=== PATIENT | male | born 1960 | race Hispanic/Latino ===

== ENCOUNTER 2022-11-19 13:20 | Emergency (ER) | payer OTHER ==
[~2022-11-19] VITALS: Ht 172.7 cm; Wt 70.3 kg
[2022-11-19 14:02] VITALS: BP 122/69
== END 2022-11-19 16:17 | disposition left against medical advice (07) ==
LOC: EDH 13:20
DX: M19.012 Primary osteoarthritis, left shoulder (principal)
CPT/HCPCS: 73030

== ENCOUNTER 2025-07-16 12:33 | Emergency (ER) | payer MEDICARE ==
[~2025-07-16] VITALS: Ht 172.7 cm; Wt 72.6 kg
[2025-07-16 12:46] LABS: IMMATURE GRANULOCYTE ABSOLUTE 0.04 K/uL (0-1); NUCLEATED RED BLOOD CELLS 0.0 % (0.0-0.19); PLATELET COUNT (AUTO) 306 K/uL (130-400); RED BLOOD CELL COUNT(AUTO) 4.26 MIL/uL (4.50-6.20); RED CELL DISTRIBUTION WIDTH 14.2 % (11.0-15.5); WHITE BLOOD COUNT (AUTO) 9.0 K/uL (4.8-10.8)
[2025-07-16 12:53] LABS: CREATININE 1.0 mg/dL (0.5-1.3); GLOMERULAR FILTR. RATE CALC 84.0 mL/min (>90); GLUCOSE,RANDOM 96.0 mg/dL (70-105); SODIUM SERUM 133.0 mmol/L (136-145); UREA NITROGEN, BLOOD 14.0 mg/dL (7-18)
[2025-07-16 13:05] LABS: APPEARANCE,URINE CLOUDY (CLEAR); GLUCOSE, URINE (UA) NEGATIVE (NEGATIVE); LEUKOCYTE ESTERASE ,URINE 25 Leu/uL (NEGATIVE); NITRATE,URINE NEGATIVE (NEGATIVE); OCCULT BLOOD,URINE SMALL (NEGATIVE)
[2025-07-16 13:16] VITALS: BP 137/81; PULSE 79; RESP 17; TEMP 98.6; O2SAT 97
--- NOTE | 2025-07-16 13:43 | ERN ---
General Chief Complaint: Painful Urination Stated Complaint: DYSURIA. RIVERA CATHETER PROBLEM Time Seen by MD: 12:35 Source: patient History of Present Illness Initial Comments Patient is a 64-year-old male coming in complaining of dysuria. Long with the as he states that he has had a catheter which he has had for two weeks in his not been exchanged. No fever no chills. Allergies: Coded Allergies: No Known Drug Allergies (Unverified Allergy, Unknown, 07/16/25) Past Medical History Past Medical History: UTI, Other Medical History Other: RIVERA CATHETER. URINARY RETENTION. Past Surgical History: Other Surgical History Other: VARICES Social History Social History: Negative, Lives with family ROS Dictation CONSTITUTIONAL: No chills, no fever, no weakness, no diaphoresis, no malaise. HEAD/FACE: No signs of trauma. EENT: No eye pain, no blurred vision, no tearing, no double vision, no ear pain, no ear discharge, no nose pain, no nasal congestion, no throat pain, no throat swelling, no mouth pain. RESPIRATORY: No cough, no orthopnea, no SOB, no stridor, no wheezing. CARDIOVASCULAR: No chest pain, no edema, no palpitations, no syncope. GASTROINTESTINAL/ABDOMINAL: No abdominal pain, no constipation, no diarrhea, no nausea, no vomiting. GENITOURINARY: No abnormal discharge, dysuria, no frequent urination, no hematuria. complaints of pain in the genitals. MUSCULOSKELETAL: No back pain, no gout, no joint pain, no joint swelling, no muscle pain, no muscle stiffness, no neck pain. INTEGUMENTARY: No change in color, no change in hair/nails, no dryness, no lesion, no lumps, no rash. NEUROLOGICAL/PSYCH: No anxiety, not depressed, no emotional problem, no headache, no numbness, no pre-existing deficit, no history of seizures, no tremors, no weakness. HEMATOLOGIC/LYMPHATIC: Not anemic, no history of blood clots, no apparent bleeding, no bruising, glands not swollen. All Systems Negative, Except as Noted. Physical Exam Physical Exam Dictation VITAL SIGNS: Reviewed. GENERAL APPEARANCE: Alert, oriented x3, no acute distress, obese. HEAD AND FACE: Non-traumatic. EYES: PERRL, pink conjunctivas, eyelid no trauma, anterior chamber clear. EARS: Pinnas intact and no signs of trauma or erythema. Ear canals clear and no discharge. TMs no erythema. NOSE: No discharge, no bleeding. OROPHARYNX: Mouth normal, teeth no caries, tongue pink. Pharynx clear, no erythema. Tonsils no exudates, no abscesses noted. Mucous membrane moist. NECK: Supple, non-tender, no thyromegaly, no masses, no JVD, no bruits. BREAST: Deferred. CHEST: No tenderness, no crepitus, no paradoxical movement, no retractions. LUNGS: Clear, well-ventilated, symmetric, no rales, no wheezing, no rhonchi, no stridor, good breath sounds bilaterally. HEART: Regular rate, regular rhythm, no murmur, no gallops. VASCULAR: No peripheral edema. ABDOMEN: Soft, positive bowel sounds, nondistended, no guarding, nontender, no rebound, no masses no hepatomegaly, no splenomegaly, no Blas's sign, no hernias. RECTAL: Deferred. GENITAL: Rivera catheter in place, balanitis, NEUROLOGICAL: Normal speech, gross motor function intact, gross sensory function intact. MUSCULOSKELETAL: Neck nontender, full range of motion, back nontender, full range of motion. EXTREMITIES: Nontender, full range of motion. SKIN: Color pink, dry, no turgor, no rash, no lacerations, no abrasions, no contusions. LYMPHATICS: Deferred. Results Laboratory and Microbiology Lab and Micro Result Laboratory Tests Test 07/16/25 12:40 07/16/25 12:51 White Blood Count 9.0 K/uL (4.8-10.8) Red Blood Count 4.26 MIL/uL (4.50-6.20) L Hemoglobin 12.3 g/dL (14.0-18.0) L Hematocrit 37.1 % (42-54) L Mean Corpuscular Volume 87.1 fL (79-99) Mean Corpuscular Hemoglobin 28.9 pg (27.0-33.0) Mean Corpuscular Hemoglobin Concent 33.2 g/dL (32.0-36.0) Red Cell Distribution Width 14.2 % (11.0-15.5) Platelet Count 306 K/uL (130-400) Mean Platelet Volume 8.9 fL (7.5-10.5) Immature Granulocyte % (Auto) 0.4 % (0-1) Neutrophils (%) (Auto) 72.1 % (40.0-77.0) Lymphocytes (%) (Auto) 14.0 % (21.0-51.0) L Monocytes (%) (Auto) 9.8 % (3.0-13.0) Eosinophils (%) (Auto) 3.1 % (0.0-8.0) Basophils (%) (Auto) 0.6 % (0.0-5.0) Neutrophils # (Auto) 6.5 K/uL (1.8-7.7) Lymphocytes # (Auto) 1.3 K/uL (1.0-4.8) Monocytes # (Auto) 0.9 K/uL (0.1-1.0) Eosinophils # (Auto) 0.28 K/uL (0.00-0.70) Basophils # (Auto) 0.05 K/uL (0.00-0.20) Absolute Immature Granulocyte (auto 0.04 K/uL (0-1) Nucleated Red Blood Cells 0.0 % (0.0-0.19) Sodium Level 133 mmol/L (136-145) L Potassium Level 3.9 mmol/L (3.5-5.1) Chloride Level 97 mmol/L (101-111) L Carbon Dioxide Level 26 mmol/L (21-32) Blood Urea Nitrogen 14 mg/dL (7-18) Creatinine 1.0 mg/dL (0.5-1.3) Glomerular Filtration Rate Calc 84 mL/min (>90) Random Glucose 96 mg/dL (70-105) Total Calcium 8.9 mg/dL (8.5-10.1) Urine Color LIGHT-YELLOW (YELLOW) Urine Appearance CLOUDY (CLEAR) H Urine pH 6.5 (5.0-8.0) Urine Specific Buck[place] 1.013 (1.001-1.031) Urine Protein NEGATIVE mg/dL (NEGATIVE) Urine Glucose (UA) NEGATIVE mg/dL (NEGATIVE) Urine Ketones NEGATIVE mg/dL (NEGATIVE) Urine Occult Blood SMALL (NEGATIVE) H Urine Nitrate NEGATIVE (NEGATIVE) Urine Bilirubin NEGATIVE mg/dL (NEGATIVE) Urine Urobilinogen 0.2 mg/dL (0.2-1.0) Urine Leukocyte Esterase 25 Debi/uL (NEGATIVE) H Urine RBC 2-5 /HPF (0-1) H Urine WBC 2-5 /HPF (0-1) H Urine Squamous Epithelial Cells 2-5 /HPF (0-2) Urine Bacteria Many /HPF (None Seen) H Labs Reviewed?: Yes MDM MDM: Differential diagnosis: Balanitis, UTI, Rivera catheter in place Rationale: Tests considered and ordered secondary to shared decision making include: Previous outside records reviewed: Old ER visits. Risk of complication and/or morbidity or mortality of patient management: None Medications-Per medication reconciliation Need for hospitalization: Patient does not meet criteria for hospitalization. Need for emergency major/minor surgery: No In his is a 64-year-old gentleman coming in to be evaluated for dysuria and penile pain. Patient has a Rivera catheter in place which he has had for two weeks. On physical exam gland penis says mildly swollen with a balanitis present. Patient will be discharged with oral antibiotics Rivera catheter was replaced. ED Course Orders Procedure Category Date Status Time Cbc With Differential LAB 07/16/25 Complete 12:35 Basic Metabolic Panel LAB 07/16/25 Complete 12:35 Urinalysis LAB 07/16/25 Complete W/Microscopic 12:35 Methylprednisolone PHA 07/16/25 Complete Succ 125mg (Solu-Medr 13:00 Culture Urine TRUDY 07/16/25 In Process 13:22 Acetaminophen 500mg PHA 07/16/25 Complete Tab (Tylenol 500mg T 14:00 Acetaminophen 500mg PHA 07/16/25 Complete Tab (Tylenol 500mg T 13:41 Current Medications Medications (Trade) Dose Ordered Sig/Jose R Route PRN Reason Start Time Stop Time Status Last Admin Dose Admin Acetaminophen (TYLenol 500MG TAB) 500 mg ONCE ONCE PO 07/16/25 14:00 07/16/25 14:01 DC 07/16/25 13:43 Acetaminophen (TYLenol 500MG TAB) 500 mg STK-MED ONCE .ROUTE 07/16/25 13:41 07/16/25 13:42 DC Methylprednisolone Sodium Succinate (Solu-medROL 125MG) 125 mg ONCE ONCE IVP 07/16/25 13:00 07/16/25 13:01 DC 07/16/25 13:10 Vital Signs Date Time Temp Pulse Resp B/P (MAP) Pulse Ox O2 Delivery O2 Flow Rate FiO2 07/16/25 13:16 98.6 79 17 137/81 97 Room Air* 0 21 07/16/25 12:34 98.8 76 18 111/93 100 Room Air 0 DX & DISP Disposition: Discharge Departure Impression: Primary Impression: Balanitis Additional Impression: UTI (urinary tract infection) Condition: Stable Scripts Dimethicone (Monistat Soothing Care) 1.2 % Gel..gram. 42 GM TP BID for 7 Days, #1 TUBE Prov: JUANITA WIN MD 07/16/25 Cephalexin Monohydrate (Keflex) 500 Mg Cap 1 CAP PO BID for 10 Days, #20 CAP 0 Refills Prov: JUANITA WIN MD 07/16/25 Additional Instructions: FOLLOW-UP WITH PRIMARY CARE PROVIDER IN 1 TO 2 DAYS. TAKE MEDICATIONS DIRECTED HERE IN THE EMERGENCY ROOM. OKAY TO CONTINUE HOME MEDICATIONS UNLESS OTHERWISE DISCUSSED DURING YOUR VISIT IN THE EMERGENCY ROOM TODAY. RETURN TO YOUR NEAREST EMERGENCY ROOM IF SYMPTOMS WORSEN OR IF THERE IS NO IMPROVEMENT. CALL 911 IF YOU NEED IMMEDIATE ASSISTANCE. TAKE TYLENOL [id number] NEEDED AND IF NO CONTRAINDICATIONS ARE PRESENT. INCREASE ORAL HYDRATION. A WOUND CULTURE OR URINE CULTURE WAS ORDERED HERE IN THE EMERGENCY ROOM DEPARTMENT PLEASE FOLLOW-UP WITH PRIMARY CARE PROVIDER AND ADVISE THEM TO GET REPORTS FROM OUR FACILITY. IF YOU HAD ANY CAITLYN WRAP/SPLINTS THAT WERE APPLIED HERE, PLEASE DO NOT REMOVE THEM UNTIL YOU SEE YOUR PRIMARY CARE OR SPECIALTY. Referrals: Referrals: SELF,REFERRAL (PCP) WILBERTO TOBAR MD, LUIS A MD Time of Disposition: 14:08 JUANITA WIN MD Jul 16, 2025 13:43
[2025-07-16] MEDS ORDERED: DIME42GE TP (14:09)
[2025-07-16] MEDS ORDERED: CEPH500B PO (14:09)
--- NOTE | 2025-07-18 09:25 | NUR ---
UPON FURTHER REVIEW OF CULTURE RESULST BY DR. WIN, NEW RX NEEDED OF FOSFOMYCIN 1G PO Q48H X 2. CALLED PT TO NUMBER ON FILE, NO ANSWER, WILL HAVE SENIOR ACCOUNTING MANAGER SEND LETTER.
== END 2025-07-16 14:26 | disposition home or self-care (01) ==
LOC: EDH 12:33
DX: N48.1 Balanitis (principal); N39.0 Urinary tract infection, site not specified; R33.9 Retention of urine, unspecified; Z87.440 Personal history of urinary (tract) infections
CPT/HCPCS: 99284; 96374; 80048; 85025; 87086 ×2; 87186; 81001; 36415; 51702; J2919

== ENCOUNTER 2025-07-17 10:04 | Emergency (ER) | payer MEDICAID, MEDICARE ==
[~2025-07-17] VITALS: Ht 170.2 cm; Wt 104.3 kg
[~2025-07-17 10:04] MED LIST: CEPH500B PO; DIME42GE TP
--- NOTE | 2025-07-17 10:18 | NUR ---
PATIENT IN ROOM
--- NOTE | 2025-07-17 11:31 | ERN ---
ED Note History of Present Illness Stated Complaint: RIVERA CATHETER COMPLICATIONS Chief Complaint: Urinary Catheter Problems Time Seen by MD: 10:38 Time Seen by Midlevel: 10:40 Dictation: 64-year-old male coming in with complaints of pain to the penile area, patient has not indwelling Rivera that was placed in for what seems like acute urinary retention. Patient is very upset demanding of the Rivera to be removed. Denies having any fever nausea or vomiting. Allergies: Coded Allergies: No Known Drug Allergies (Unverified Allergy, Unknown, 07/16/25) Home Meds Active Scripts Dimethicone (Monistat Soothing Care) 1.2 % Gel..gram., 42 GM TP BID for 7 Days, #1 TUBE Prov:JUANITA WIN MD 07/16/25 Cephalexin Monohydrate (Keflex) 500 Mg Cap, 1 CAP PO BID for 10 Days, #20 CAP 0 Refills Prov:JUANITA WIN MD 07/16/25 Past Medical History Past Medical History: UTI, Other Additional Past Medical Hx: RIVERA CATHETER. URINARY RETENTION. Surgical History: Other Surgical History Other: VARICES Social History: Negative, Lives with family Review of System Dictation Constitutional: Negative for fever,chills, and weight loss Eyes: Negative for injury, pain,redness, and discharge ENT: Negative for injury,pain or swelling Cardiovascular: Negative for chest pain, palpitations, and edema Respiratory: Negative for shortness of breath, cough, and wheezing, Abdomen/GI: Negative for abdominal pain, nausea, vomiting, diarrhea, and cons tipation Back: Negative for injury and pain : Negative for injury, bleeding and discharge, complaining of pain to the Rivera site MS/Extremity: Negative for injury and deformity Skin: Negative for rash, and discoloration Neuro: Negative for headache, weakness, numbness, tingling, and seizure Psych: Negative for suicide ideation, homicidal ideation, and hallucinations Review of Systems: was completed Initial Vital Sign VS Vital Signs Date Time Temp Pulse Resp B/P (MAP) Pulse Ox O2 Delivery O2 Flow Rate FiO2 07/17/25 10:14 98.1 82 16 128/77 98 Room Air 0 07/17/25 10:36 21 Physical Exam Dictation General: awake, alert, NAD Head/Face: Normocephalic, atraumatic Eyes: PERRL, EOMI, vision at baseline ENT: oral cavity clear, TMs clear, no signs of infection Neck: Trachea midline, supple, no nuchal rigidity Cardiovascular: RRR, normal S1/S2, No MRGs, no JVD Respiratory: CTAB, no respiratory distress, No rales or wheezes Abdomen: Soft, non-tender, non-distended, normal bowel sounds, no guarding or rebound. Skin: Warm, dry, normal turgor, no rash MS/Extremity: Pulses equal, no cyanosis, neurovascular intact, FROM Neuro: COAx4, GCS 15, strength 5/5, CN 2-12 intact, normal cerebellar exam, normal gait, Psych: Normal behavior, mood, and affect normal ED Course ED Course Vital Signs Date Time Temp Pulse Resp B/P (MAP) Pulse Ox O2 Delivery O2 Flow Rate FiO2 07/17/25 10:36 98.8 66 14 121/76 97 Room Air* 0 21 07/17/25 10:14 98.1 82 16 128/77 98 Room Air 0 Medical Decision Making MDM MDM: 64-year-old male coming in with complaints of pain to the penile area, patient has not indwelling Rivera that was placed in for what seems like acute urinary retention. Patient is very upset demanding of the Rivera to be removed. Denies having any fever nausea or vomiting. Patient was seen here yesterday for similar complaints, was diagnosed with balanitis placed on Keflex and discharge. Patient was educated multiple times on the importance of keeping Rivera catheter in place due to his urinary retention. Patient is a very upset, demanding for us to remove the Rivera catheter. Educated patient multiple times on your possible acute urinary retention again and he will have to come back and we will have the reinsert Rivera, patient states that is already that he will just come back later if he needs to. Wound since educated that he needs to follow up outpatient with his urologist and with the PCP. Differential diagnosis: The catheter dislodgement, balanitis, urinary tract infection Rationale: Tests considered and ordered secondary to shared decision making include: Previous outside records reviewed: Old ER visits. Risk of complication and/or morbidity or mortality of patient management: None Medications-Per medication reconciliation Need for hospitalization: Patient does not meet criteria for hospitalization. Need for emergency major/minor surgery: No There are no social concerns with this patient. Prescription drug management Prescriptions will include symptomatic care Patient's prior external medical records from other ER visits were reviewed by me as indicated. Prior testing and results from previous visits were reviewed. Prior tests were taken into account with medical decision making and resource utilization, independent historian/historians were used to obtain complete medical history. I independently interpreted the test that were performed, results were reviewed by me and considered findings on radiology if ordered. Medical management and examination interpretation discussions were had by me with other qualified healthcare professionals as indicated for the patient's care. DX & DISP Disposition: Discharge Departure Impression: Primary Impression: Encounter for Rivera catheter removal Condition: Stable Additional Instructions: You ask for us to remove your Rivera catheter. There is a possibility you will start retaining urine. If you start feeling bladder fullness, unable to urinate, pain to the lower abdomen return to the hospital. Otherwise follow up with the urologist. Referrals: SELF,REFERRAL (PCP) TONJA MONTEMAYOR MD Time of Disposition: 11:30 I have reviewed the case, and I agree with, Diagnosis and Plan SAWYER GARY [facility] Jul 17, 2025 11:31
--- NOTE | 2025-07-17 11:54 | NUR ---
PER PATIENT'S REQUEST, RIVERA CATH WAS REMOVED. FLASH JACQUES EXPLAINED TO THE PATIENT THAT THERE IS A POSSIBLITY OF URINE RETENTION, AND SIGNS AND SYMPOTMS WERE EXPLAINED TO THE PATIENT OF POSSIBLE RETENTION. FLASH JACQUES EXPLAINED TO THE PATIENT IF HE DOES NOT VOID ON HIS OWN OR FELT HIS BLADDER DISTENDED, HE COULD POSSIBLY BE RETAINING URINE. PATIENT VERBALIZED UNDERSTANDING AND STATED HE WANTED THE RIVERA OUT.
[2025-07-17 12:12] VITALS: BP 120/75; PULSE 67; RESP 17; TEMP 98.8; O2SAT 98
== END 2025-07-17 12:13 | disposition home or self-care (01) ==
LOC: EDH 10:04
DX: N48.89 Other specified disorders of penis (principal); Z46.6 Encounter for fitting and adjustment of urinary device; Z87.440 Personal history of urinary (tract) infections
CPT/HCPCS: 99283

== ENCOUNTER 2025-07-23 09:02 | Emergency (ER) | payer MEDICAID, MEDICARE ==
[~2025-07-23] VITALS: Ht 172.7 cm; Wt 72.6 kg
[2025-07-23 09:05] VITALS: TEMP 97.9
--- NOTE | 2025-07-23 09:10 | ERN ---
General Chief Complaint: Urinary Retention Stated Complaint: URINARY RETENTION Time Seen by MD: 09:06 Source: patient History of Present Illness Initial Comments Patient is a 64-year-old gentleman coming in complaining of lower abdominal pressure. He states he has not been able to urinate for a couple of days. He states that he had recently has a your Rivera catheter removed. Allergies: Coded Allergies: No Known Drug Allergies (Unverified Allergy, Unknown, 07/16/25) Home Meds Active Scripts Dimethicone (Monistat Soothing Care) 1.2 % Gel..gram., 42 GM TP BID for 7 Days, #1 TUBE Prov:JUANITA WIN MD 07/16/25 Cephalexin Monohydrate (Keflex) 500 Mg Cap, 1 CAP PO BID for 10 Days, #20 CAP 0 Refills Prov:JUANITA WIN MD 07/16/25 Past Medical History Past Medical History: UTI, Other Medical History Other: RIVERA CATHETER. URINARY RETENTION. Past Surgical History: Other Surgical History Other: VARICES Social History Social History: Negative, Lives with family ROS Dictation CONSTITUTIONAL: No chills, no fever, no weakness, no diaphoresis, no malaise. HEAD/FACE: No signs of trauma. EENT: No eye pain, no blurred vision, no tearing, no double vision, no ear pa in, no ear discharge, no nose pain, no nasal congestion, no throat pain, no throat swelling, no mouth pain. RESPIRATORY: No cough, no orthopnea, no SOB, no stridor, no wheezing. CARDIOVASCULAR: No chest pain, no edema, no palpitations, no syncope. GASTROINTESTINAL/ABDOMINAL: abdominal pain, no constipation, no diarrhea, no nausea, no vomiting. GENITOURINARY: No abnormal discharge, no dysuria, no frequent urination, no hematuria. No complaints of pain in the genitals. MUSCULOSKELETAL: No back pain, no gout, no joint pain, no joint swelling, no muscle pain, no muscle stiffness, no neck pain. INTEGUMENTARY: No change in color, no change in hair/nails, no dryness, no lesion, no lumps, no rash. NEUROLOGICAL/PSYCH: No anxiety, not depressed, no emotional problem, no headache, no numbness, no pre-existing deficit, no history of seizures, no tremors, no weakness. HEMATOLOGIC/LYMPHATIC: Not anemic, no history of blood clots, no apparent bleeding, no bruising, glands not swollen. All Systems Negative, Except as Noted. Physical Exam Physical Exam Dictation VITAL SIGNS: Reviewed. GENERAL APPEARANCE: Alert, oriented x3, no acute distress, obese. HEAD AND FACE: Non-traumatic. EYES: PERRL, pink conjunctivas, eyelid no trauma, anterior chamber clear. EARS: Pinnas intact and no signs of trauma or erythema. Ear canals clear and no discharge. TMs no erythema. NOSE: No discharge, no bleeding. OROPHARYNX: Mouth normal, teeth no caries, tongue pink. Pharynx clear, no e rythema. Tonsils no exudates, no abscesses noted. Mucous membrane moist. NECK: Supple, non-tender, no thyromegaly, no masses, no JVD, no bruits. BREAST: Deferred. CHEST: No tenderness, no crepitus, no paradoxical movement, no retractions. LUNGS: Clear, well-ventilated, symmetric, no rales, no wheezing, no rhonchi, no stridor, good breath sounds bilaterally. HEART: Regular rate, regular rhythm, no murmur, no gallops. VASCULAR: No peripheral edema. ABDOMEN: Soft, positive bowel sounds, nondistended, no guarding, nontender, no rebound, no masses no hepatomegaly, no splenomegaly, no Blas's sign, no hernias. RECTAL: Deferred. GENITAL: Deferred. NEUROLOGICAL: Normal speech, gross motor function intact, gross sensory function intact. MUSCULOSKELETAL: Neck nontender, full range of motion, back nontender, full range of motion. EXTREMITIES: Nontender, full range of motion. SKIN: Color pink, dry, no turgor, no rash, no lacerations, no abrasions, no contusions. LYMPHATICS: Deferred. Results Laboratory and Microbiology Lab and Micro Result Laboratory Tests Test 07/23/25 09:36 White Blood Count 8.1 K/uL (4.8-10.8) Red Blood Count 4.27 MIL/uL (4.50-6.20) L Hemoglobin 12.3 g/dL (14.0-18.0) L Hematocrit 37.5 % (42-54) L Mean Corpuscular Volume 87.8 fL (79-99) Mean Corpuscular Hemoglobin 28.8 pg (27.0-33.0) Mean Corpuscular Hemoglobin Concent 32.8 g/dL (32.0-36.0) Red Cell Distribution Width 14.6 % (11.0-15.5) Platelet Count 362 K/uL (130-400) Mean Platelet Volume 9.8 fL (7.5-10.5) Immature Granulocyte % (Auto) 1.1 % (0-1) H Neutrophils (%) (Auto) 68.1 % (40.0-77.0) Lymphocytes (%) (Auto) 18.9 % (21.0-51.0) L Monocytes (%) (Auto) 7.3 % (3.0-13.0) Eosinophils (%) (Auto) 3.6 % (0.0-8.0) Basophils (%) (Auto) 1.0 % (0.0-5.0) Neutrophils # (Auto) 5.5 K/uL (1.8-7.7) Lymphocytes # (Auto) 1.5 K/uL (1.0-4.8) Monocytes # (Auto) 0.6 K/uL (0.1-1.0) Eosinophils # (Auto) 0.29 K/uL (0.00-0.70) Basophils # (Auto) 0.08 K/uL (0.00-0.20) Absolute Immature Granulocyte (auto 0.09 K/uL (0-1) Nucleated Red Blood Cells 0.0 % (0.0-0.19) Sodium Level 136 mmol/L (136-145) Potassium Level 4.4 mmol/L (3.5-5.1) Chloride Level 101 mmol/L (101-111) Carbon Dioxide Level 28 mmol/L (21-32) Blood Urea Nitrogen 21 mg/dL (7-18) H Creatinine 0.9 mg/dL (0.5-1.3) Glomerular Filtration Rate Calc 95 mL/min (>90) Random Glucose 88 mg/dL (70-105) Total Calcium 8.9 mg/dL (8.5-10.1) Troponin I High Sensitivity 8 ng/L (4-75) Labs Reviewed?: Yes MDM MDM: Differential diagnosis: Urine retention, Rivera catheter in place, Rationale: Tests considered and ordered secondary to shared decision making include: Previous outside records reviewed: Old ER visits. Risk of complication and/or morbidity or mortality of patient management: None Medications-Per medication reconciliation Need for hospitalization: Patient does not meet criteria for hospitalization. Need for emergency major/minor surgery: No Patient is a 64-year-old gentleman coming in complaining of urine retention. Rivera catheter was placed. Patient felt relief. Patient will be discharged in stable condition with a diagnosis of urine retention. ED Course Orders Procedure Category Date Status Time Cbc With Differential LAB 07/23/25 Complete 09: Basic Metabolic Panel LAB 07/23/25 Complete : Troponin I High LAB 07/23/25 Complete Sensitivity 09:22 12 Lead Ekg Tracing- EKG 07/23/25 Logged Technical : Vital Signs Date Time Temp Pulse Resp B/P (MAP) Pulse Ox O2 Delivery O2 Flow Rate FiO2 07/23/25 11:01 72 18 132/77 99 Room Air* 0 21 07/23/25 09:05 97.9 64 20 117/81 99 Room Air DX & DISP Disposition: Discharge Departure Impression: Primary Impression: Urinary retention Condition: Stable Additional Instructions: FOLLOW-UP WITH PRIMARY CARE PROVIDER IN 1 TO 2 DAYS. TAKE MEDICATIONS DIRECTED HERE IN THE EMERGENCY ROOM. OKAY TO CONTINUE HOME MEDICATIONS UNLESS OTHERWISE DISCUSSED DURING YOUR VISIT IN THE EMERGENCY ROOM TODAY. RETURN TO YOUR NEAREST EMERGENCY ROOM IF SYMPTOMS WORSEN OR IF THERE IS NO IMPROVEMENT. CALL 911 IF YOU NEED IMMEDIATE ASSISTANCE. TAKE TYLENOL [id number] NEEDED AND IF NO CONTRAINDICATIONS ARE PRESENT. INCREASE ORAL HYDRATION. A WOUND CULTURE OR URINE CULTURE WAS ORDERED HERE IN THE EMERGENCY ROOM DEPARTMENT PLEASE FOLLOW-UP WITH PRIMARY CARE PROVIDER AND ADVISE THEM TO GET REPORTS FROM OUR FACILITY. IF YOU HAD ANY CAITLYN WRAP/SPLINTS THAT WERE APPLIED HERE, PLEASE DO NOT REMOVE THEM UNTIL YOU SEE YOUR PRIMARY CARE OR SPECIALTY. Referrals: Referrals: KATHY LOERA (PCP) Time of Disposition: 11:09 JUANITA WIN MD Jul 23, 2025 09:10
--- NOTE | 2025-07-23 09:26 | NUR ---
PT C/O DIFFICULTY WITH URINATION FOR ONE WEEK, BLADDER [id number] NOTED. 16 FR RIVERA CATH INSERTED USING STERILE TECHNIQUE, PT TOLERATED WELL.
[2025-07-23 10:26] LABS: IMMATURE GRANULOCYTE ABSOLUTE 0.09 K/uL (0-1); NUCLEATED RED BLOOD CELLS 0.0 % (0.0-0.19); PLATELET COUNT (AUTO) 362 K/uL (130-400); RED BLOOD CELL COUNT(AUTO) 4.27 MIL/uL (4.50-6.20); RED CELL DISTRIBUTION WIDTH 14.6 % (11.0-15.5); WHITE BLOOD COUNT (AUTO) 8.1 K/uL (4.8-10.8)
[2025-07-23 10:34] LABS: CREATININE 0.9 mg/dL (0.5-1.3); GLOMERULAR FILTR. RATE CALC 95.0 mL/min (>90); GLUCOSE,RANDOM 88.0 mg/dL (70-105); SODIUM SERUM 136.0 mmol/L (136-145); UREA NITROGEN, BLOOD 21.0 mg/dL (7-18)
[2025-07-23 11:01] VITALS: BP 132/77; PULSE 72; RESP 18; O2SAT 99
--- NOTE | 2025-07-23 11:20 | NUR ---
RIVERA BAG REPLACED WITH LEG BAG AND PT WAS INSTRUCTED ON USE, PT VERBALIZED FULL UNDERSTANDING
--- NOTE | 2025-07-23 14:56 | EKG ---
[facility] Test Date: 2025-07-23 Test Time: 09:25:01 Pat Name: JIMMY CHAKRABORTY Department: ED Room: Gender: Campaign Management Senior Manager: [facility] [employer] [facility] : 1960 Requested By: JUANITA WIN Order Number: [id number] Reading MD: Erasto Castellanos Measurements Intervals Dwight Rate: 63 P: 90 UT: 216 QRS: 70 QRSD: 92 T: 33 QT: 378 QTc: 387 Interpretive Statements Sinus rhythm Borderline prolonged UT interval No previous ECG available for comparison Electronically Signed On 07-24-2025 13:08:05 TRAFFIC CONTROL SUPERVISOR by Erasto Castellanos Please click the below link to view image of tracing.
== END 2025-07-23 11:35 | disposition home or self-care (01) ==
LOC: EDH 09:02
DX: R33.9 Retention of urine, unspecified (principal)
CPT/HCPCS: 36415; 51702; 80048; 84484; 85025; 93005; 99284

== ENCOUNTER 2025-07-25 11:27 | Emergency (ER) | payer MEDICAID ==
[~2025-07-25] VITALS: Ht 172.7 cm; Wt 72.6 kg
[2025-07-25 11:58] VITALS: BP 119/84; PULSE 80; RESP 16; TEMP 99.1; O2SAT 94
--- NOTE | 2025-07-25 12:01 | NUR ---
ASSESSED RIVERA CATHETER AND PATIENT HAS FORESKIN SWELLING, RIVERA IS PATENT ATTACHED TO LEG BAG WITH YELLOW URINE, PATIENT RESTING IN BED, CALL LIGHT IN REACH
--- NOTE | 2025-07-25 12:05 | ERN ---
General Chief Complaint: Penis Problem Stated Complaint: PENIS PROBLEM Time Seen by MD: 11:30 Source: patient, EMS History of Present Illness Initial Comments Patient is a 64-year-old male coming in complaining of penile discomfort. Patient is a Rivera catheter in place and states in his is a working. Allergies: Coded Allergies: No Known Drug Allergies (Unverified Allergy, Unknown, 07/16/25) Home Meds Active Scripts Dimethicone (Monistat Soothing Care) 1.2 % Gel..gram., 42 GM TP BID for 7 Days, #1 TUBE Prov:JUANITA WIN MD 07/16/25 Cephalexin Monohydrate (Keflex) 500 Mg Cap, 1 CAP PO BID for 10 Days, #20 CAP 0 Refills Prov:JUANITA WIN MD 07/16/25 Past Medical History Past Medical History: UTI, Other Medical History Other: RIVERA CATHETER. URINARY RETENTION. Past Surgical History: Other Surgical History Other: VARICES Social History Social History: Negative, Lives with family ROS Dictation CONSTITUTIONAL: No chills, no fever, no weakness, no diaphoresis, no malaise. HEAD/FACE: No signs of trauma. EENT: No eye pain, no blurred vision, no tearing, no double vision, no ear pain, no ear discharge, no nose pain, no nasal congestion, no throat pain, no t hroat swelling, no mouth pain. RESPIRATORY: No cough, no orthopnea, no SOB, no stridor, no wheezing. CARDIOVASCULAR: No chest pain, no edema, no palpitations, no syncope. GASTROINTESTINAL/ABDOMINAL: No abdominal pain, no constipation, no diarrhea, n o nausea, no vomiting. GENITOURINARY: No abnormal discharge, dysuria, no frequent urination, no hematuria. complaints of pain in the genitals. MUSCULOSKELETAL: No back pain, no gout, no joint pain, no joint swelling, no muscle pain, no muscle stiffness, no neck pain. INTEGUMENTARY: No change in color, no change in hair/nails, no dryness, no lesion, no lumps, no rash. NEUROLOGICAL/PSYCH: No anxiety, not depressed, no emotional problem, no headache, no numbness, no pre-existing deficit, no history of seizures, no tremors, no weakness. HEMATOLOGIC/LYMPHATIC: Not anemic, no history of blood clots, no apparent bleeding, no bruising, glands not swollen. All Systems Negative, Except as Noted. Physical Exam Physical Exam Dictation VITAL SIGNS: Reviewed. GENERAL APPEARANCE: Alert, oriented x3, no acute distress, obese. HEAD AND FACE: Non-traumatic. EYES: PERRL, pink conjunctivas, eyelid no trauma, anterior chamber clear. EARS: Pinnas intact and no signs of trauma or erythema. Ear canals clear and no discharge. TMs no erythema. NOSE: No discharge, no bleeding. OROPHARYNX: Mouth normal, teeth no caries, tongue pink. Pharynx clear, no erythema. Tonsils no exudates, no abscesses noted. Mucous membrane moist. NECK: Supple, non-tender, no thyromegaly, no masses, no JVD, no bruits. BREAST: Deferred. CHEST: No tenderness, no crepitus, no paradoxical movement, no retractions. LUNGS: Clear, well-ventilated, symmetric, no rales, no wheezing, no rhonchi, no stridor, good breath sounds bilaterally. HEART: Regular rate, regular rhythm, no murmur, no gallops. VASCULAR: No peripheral edema. ABDOMEN: Soft, positive bowel sounds, nondistended, no guarding, nontender, no rebound, no masses no hepatomegaly, no splenomegaly, no Blas's sign, no hernias. RECTAL: Deferred. GENITAL: Deferred. NEUROLOGICAL: Normal speech, gross motor function intact, gross sensory function intact. MUSCULOSKELETAL: Neck nontender, full range of motion, back nontender, full range of motion. EXTREMITIES: Nontender, full range of motion. SKIN: Color pink, dry, no turgor, no rash, no lacerations, no abrasions, no contusions. LYMPHATICS: Deferred. Results Laboratory and Microbiology Labs Reviewed?: Yes MDM MDM: Differential diagnosis: Rivera catheter malfunction, balanitis, poor hygiene, Rationale: Tests considered and ordered secondary to shared decision making include: Previous outside records reviewed: Old ER visits. Risk of complication and/or morbidity or mortality of patient management: None Medications-Per medication reconciliation Need for hospitalization: Patient does not meet criteria for hospitalization. Need for emergency major/minor surgery: No Patient is a 64-year-old male coming in complaining of penile pain secondary to has been in a Rivera has been placed. On physical exam the Rivera catheter was in place flushed in his working properly. Patient will be discharged in stable condition I did advised him appropriate follow up with PCP for ongoing evaluation. ED Course Vital Signs Date Time Temp Pulse Resp B/P (MAP) Pulse Ox O2 Delivery O2 Flow Rate FiO2 07/25/25 11:28 98.4 73 18 122/68 99 Room Air DX & DISP Disposition: Discharge Departure Impression: Primary Impression: Balanitis Additional Impression: Encounter for evaluation of Rivera catheter Condition: Stable Additional Instructions: FOLLOW-UP WITH PRIMARY CARE PROVIDER IN 1 TO 2 DAYS. TAKE MEDICATIONS DIRECTED HERE IN THE EMERGENCY ROOM. OKAY TO CONTINUE HOME MEDICATIONS UNLESS OTHERWISE DISCUSSED DURING YOUR VISIT IN THE EMERGENCY ROOM TODAY. RETURN TO YOUR NEAREST EMERGENCY ROOM IF SYMPTOMS WORSEN OR IF THERE IS NO IMPROVEMENT. CALL 911 IF YOU NEED IMMEDIATE ASSISTANCE. TAKE TYLENOL [id number] NEEDED AND IF NO CONTRAINDICATIONS ARE PRESENT. INCREASE ORAL HYDRATION. A WOUND CULTURE OR URINE CULTURE WAS ORDERED HERE IN THE EMERGENCY ROOM DEPARTMENT PLEASE FOLLOW-UP WITH PRIMARY CARE PROVIDER AND ADVISE THEM TO GET REPORTS FROM OUR FACILITY. IF YOU HAD ANY CAITLYN WRAP/SPLINTS THAT WERE APPLIED HERE, PLEASE DO NOT REMOVE THEM UNTIL YOU SEE YOUR PRIMARY CARE OR SPECIALTY. Referrals: Referrals: KATHY LOERA (PCP) Time of Disposition: 12:04 JUANITA WIN MD Jul 25, 2025 12:05
== END 2025-07-25 12:32 | disposition home or self-care (01) ==
LOC: EDH 11:27
DX: N48.1 Balanitis (principal); Z87.440 Personal history of urinary (tract) infections; Z46.6 Encounter for fitting and adjustment of urinary device
CPT/HCPCS: 99282

== ENCOUNTER 2025-08-04 15:14 | Emergency (ER) | payer MEDICAID, MEDICARE ==
[~2025-08-04] VITALS: Ht 172.7 cm; Wt 72.6 kg
[~2025-08-04 15:14] MED LIST changes: +CEFD300C3 PO; -CEPH500B PO; +DOXY-466 PO
--- NOTE | 2025-08-04 15:32 | ERN ---
ED Note History of Present Illness Stated Complaint: CONSTIPATION Chief Complaint: Constipation Time Seen by MD: 15:17 Dictation: SAID 64-YEAR-OLD MALE COMING IN WITH COMPLAINTS OF HAVING NO BOWEL MOVEMENT FOR FIVE DAYS. HE DENIES NAUSEA VOMITING SAID HE WENT TO HIS PRIMARY CARE DOCTOR THIS MORNING WHO ADVISED HIM TO GO TO THE EMERGENCY ROOM. Allergies: Coded Allergies: No Known Drug Allergies (Unverified Allergy, Unknown, 07/16/25) Home Meds Active Scripts Cefdinir (Cefdinir) 300 Mg Capsule, 1 CAP PO BID for 7 Days, #14 CAP 0 Refills Prov:DUSTIN FIGUEROA MD 08/01/25 Doxycycline Monohydrate (Doxycycline Monohydrate) 100 Mg Capsule, 1 CAP PO BID for 7 Days, #14 CAP 0 Refills Prov:DUSTIN FIGUEROA MD 08/01/25 Dimethicone (Monistat Soothing Care) 1.2 % Gel..gram., 42 GM TP BID for 7 Days, #1 TUBE Prov:JUANITA WIN MD 07/16/25 Discontinued Scripts Cephalexin Monohydrate (Keflex) 500 Mg Cap, 1 CAP PO BID for 10 Days, #20 CAP 0 Refills Prov:JUANITA WIN MD 07/16/25 Past Medical History Past Medical History: CHF, Hypertension Additional Past Medical Hx: RIVERA CATHETER. URINARY RETENTION. Surgical History: None Surgical History Other: VARICES Social History: Negative, Lives with family RN Note Reviewed/Agreed w/PFSH: Yes Review of System Dictation CONSTITUTIONAL: NEGATIVE EXCEPT FOR HPI HEAD/FACE: NEGATIVE EXCEPT FOR HPI EENT: NEGATIVE EXCEPT FOR HPI RESPIRATORY: NEGATIVE EXCEPT FOR HPI GASTROINTESTINAL/ABDOMINAL: NEGATIVE EXCEPT FOR HPI CONSTIPATION GENITOURINARY: NEGATIVE EXCEPT FOR HPI MUSCULOSKELETAL: NEGATIVE EXCEPT FOR HPI INTEGUMENTARY: NEGATIVE EXCEPT FOR HPI NEUROLOGICAL/PSYCH: NEGATIVE EXCEPT FOR HPI HEMATOLOGIC/LYMPHATIC: NEGATIVE EXCEPT FOR HPI ALL SYSTEMS NEGATIVE, EXCEPT NOTED ABOVE. 13 POINT REVIEW OF SYSTEMS ASSESSED AND ALL NEGATIVE EXCEPT FOR ABOVE. Initial Vital Sign VS Vital Signs Date Time Temp Pulse Resp B/P (MAP) Pulse Ox O2 Delivery O2 Flow Rate FiO2 08/04/25 15:20 97.7 89 16 112/78 95 Room Air 0 Physical Exam Dictation VITAL SIGNS REVIEWED GENERAL APPEARANCE: ALERT, ORIENTED X 3, N MILD ACUTE DISTRESS, WELL DEVELOPED, NOURISHED. HEAD AND FACE: NON-TRAUMATIC. EYES: PERRL, PINK CONJUNCTIVAS, EYELID NO TRAUMA, ANTERIOR CHAMBER WITH ARCUS SENILIS. EARS: PINNAS INTACT AND NO SIGNS OF TRAUMA OR ERYTHEMA EAR CANALS CLEAR AND NO DISCHARGE TM NO ERYTHEMA NOSE: NO DISCHARGE, NO BLEEDING. OROPHARYNX: MOUTH NORMAL, TONGUE PINK, PHARYNX CLEAR,NO ERYTHEMA, TONSILS NO EXUDATES, NO ABSCESSES NOTED, MUCOUS MEMBRANE MOIST NECK: SUPPLE, NON-TENDER, NO THYROMEGALY, NO MASSES, NO JVD, NO BRUITS BREAST:DEFERRED CHEST:NO TENDERNESS, NO CREPITUS, NO PARADOXICAL MOVEMENT, NO RETRACTIONS LUNGS:CLEAR, WELL-VENTILATED, SYMMETRIC, NO RALES, NO WHEEZING, NO RHONCHI, NO STRIDOR, GOOD BREATH SOUNDS BILATERALLY HEART: REGULAR RATE, REGULAR RHYTHM, NO MURMUR, NO GALLOPS VASCULAR: NO PERIPHERAL EDEMA, ABDOMEN: SOFT, POSITIVE/HYPO, NONDISTENDED, NO GUARDING, NONTENDER, NO REBOUND, NO MASSES NO HEPATOMEGALY, NO SPLENOMEGALY, NO SHEIKH'S SIGN, NO HERNIAS. NO FOCAL TENDERNESS RECTAL: DEFERRED GENITAL: DEFERRED NEUROLOGICAL: NORMAL SPEECH, MOTOR FUNCTION INTACT, SENSORY FUNCTION INTACT MUSCULOSKELETAL: NECK NONTENDER, FULL RANGE OF MOTION, BACK NONTENDER, FULL RANGE OF MOTION, EXTREMITIES: NONTENDER, FULL RANGE OF MOTION SKIN: COLOR PINK, DRY, NO TURGOR, NO RASH, NO LACERATIONS, NO ABRASIONS, NO CONTUSIONS. LYMPHATIC: DEFERRED Results (Laboratory/Radiology) Laboratory/Radiology 1615/KUB DEMONSTRATES NONSPECIFIC GAS PATTERN WITH RETAINED STOOL. Labs Reviewed?: Yes ED Course ED Course Orders Procedure Category Date Status Time Lactulose 20 Gm/30 Ml PHA 08/04/25 Complete Udcup (Constulose 15:30 Abd 1vw RAD 08/04/25 Taken 15:29 Current Medications Medications (Trade) Dose Ordered Sig/Jose R Route PRN Reason Start Time Stop Time Status Last Admin Dose Admin Lactulose (Constulose 20gm/ 30ml Udcup) 20 gm ONCE ONCE PO 08/04/25 15:30 08/04/25 15:32 DC 08/04/25 15:42 Vital Signs Date Time Temp Pulse Resp B/P (MAP) Pulse Ox O2 Delivery O2 Flow Rate FiO2 08/04/25 15:20 97.7 89 16 112/78 95 Room Air 0 Medical Decision Making MDM MEDICAL DECISION-MAKING BASED ON KUB AND EMPIRIC TREATMENT FOR CONSTIPATION. NO BOWEL MOVEMENT IN ER AFTER LACTULOSE KUB DEMONSTRATES NONSPECIFIC GAS PATTERN DISCHARGED HOME WITH GOLYTELY DX & DISP Disposition: Discharge Departure Impression: Primary Impression: Acute constipation Condition: Stable Scripts Peg 3350/Na Sulf,Bicarb,Cl/KCl (Golytely/Colyte Soln) 236-22.74G Soln 4000 ML PO AD, #1 BOTTLE MIX BOTTLE DIRECTED. DRINK ONE CUP EVERY 10 MINUTES UNTIL YOUR STOOLS ARE CLEAR. Prov: MACI TAVAREZ 08/04/25 Additional Instructions: FOLLOW-UP WITH PRIMARY CARE PROVIDER IN 1 TO 2 DAYS. TAKE MEDICATIONS DIRECTED HERE IN THE EMERGENCY ROOM. OKAY TO CONTINUE HOME MEDICATIONS UNLESS OTHERWISE DISCUSSED DURING YOUR VISIT IN THE EMERGENCY ROOM TODAY. RETURN TO YOUR NEAREST EMERGENCY ROOM IF SYMPTOMS WORSEN OR IF THERE IS NO IMPROVEMENT. CALL 911 IF YOU NEED IMMEDIATE ASSISTANCE. TAKE TYLENOL OR MOTRIN [id number] NEEDED AND IF NO CONTRAINDICATIONS ARE PRESENT. INCREASE ORAL HYDRATION. A WOUND CULTURE OR URINE CULTURE WAS ORDERED HERE IN THE [facility] DEPARTMENT PLEASE FOLLOW-UP WITH PRIMARY CARE PROVIDER AND ADVISE THEM TO GET REPEAT PORTS FROM OUR FACILITY. IF YOU HAD ANY CAITLYN WRAP/SPLINTS THAT WERE APPLIED HERE, PLEASE DO NOT REMOVE THEM UNTIL YOU SEE YOUR PRIMARY CARE OR SPECIALTY. INCREASE YOUR WATER INTAKE. USE GOLYTELY DIRECTED UNTIL YOUR STOOLS ARE CLEAR. SEE YOUR PRIMARY CARE DOCTOR FOR FOLLOW UP FOR YOUR CONSTIPATION Referrals: KATHY LOERA (PCP) Time of Disposition: 16:14 I have reviewed the case, and I agree with, Diagnosis and Plan MACI TAVAREZ Aug 04, 2025 15:32
[2025-08-04] MEDS: LACTULOSE 20 GM/30 ML UDCUP PO ONE (15:42)
[2025-08-04] MEDS ORDERED: GOLY4L PO (16:15)
[2025-08-04 16:27] VITALS: BP 115/76; PULSE 85; RESP 16; TEMP 97.7; O2SAT 99
--- NOTE | 2025-08-04 16:36 | NUR ---
NUMBER ON FILE NOT A WORKING NUMBER PT IS READY FOR DISCHARGE
--- NOTE | 2025-08-04 16:42 | NUR ---
PT HAS NO RIDE. NOTIFIED HOUSE SUPERVISORFOR JONEL MAN
--- NOTE | 2025-08-04 18:22 | HMCIMG ---
EXAM: CR ABDOMEN, 1 VIEW CLINICAL HISTORY: Constipation for 5 days. COMPARISON: CT abdomen from 07/31/2025. TECHNIQUE: Single frontal radiograph of the abdomen. FINDINGS: Bowel gas pattern: Non-obstructive. No bowel or stomach distension. Free air: Not assessed on a single supine view. Organomegaly: Mild hepatomegaly is seen. Calcifications: No pathologic calcifications observed. Bones and soft tissues: Unremarkable. IMPRESSION: 1. Non-obstructive bowel gas pattern. 2. Stable mild hepatomegaly. 3. Compared with CT abdomen dated 07/31/2025, no interval change is seen. /[place]
== END 2025-08-04 17:07 | disposition home or self-care (01) ==
LOC: EDH 15:14
DX: K59.00 Constipation, unspecified (principal); I11.0 Hypertensive heart disease with heart failure; I50.9 Heart failure, unspecified
CPT/HCPCS: 74018; 99283